=== PATIENT | male | born 1995 | race Caucasian/White ===

== ENCOUNTER 2022-02-18 15:25 | Emergency (ER) | payer OTHER, SELFPAY ==
[2022-02-18 15:59] VITALS: BP 152/91; PULSE 109; RESP 15; TEMP 36.6; O2SAT 98; BMI 24.3
[2022-02-18 16:07] VITALS: BP 141/85; PULSE 115; O2SAT 98
--- NOTE | 2022-02-18 16:23 | DI.RAD.S_ITS ---
PROCEDURE: XR CHEST 1V INDICATIONS: chest pain, hx pericarditis TECHNIQUE: One view of the chest was acquired. COMPARISON: None. FINDINGS: Surgical changes and devices: None. Lungs and pleura: Lungs are clear. No pleural effusions or pneumothorax. Mediastinum: Mediastinal contours appear normal. Heart size is normal. Bones and chest wall: No suspicious bony lesions. Overlying soft tissues appear unremarkable. IMPRESSION: No acute cardiopulmonary findings Approved by: Serg Berry M.D. on 02/18/2022 at 16:10
--- NOTE | 2022-02-18 16:24 | ED_ITS ---
HPI - Abdominal Pain <ARLENE Hoyos - Last Filed: 02/18/22 18:00> General Chief Complaint: Abdominal Pain Stated Complaint: fatigue, upper abd pressure, high heart rate Time Seen by Provider: 02/18/22 16:06 History of Present Illness HPI narrative: This is a 26-year-old male with history of pericarditis 1 year ago after COVID vaccination and takes metoprolol at baseline after this event who presents to the emergency department complaining of not feeling like himself for 1 month with occasional dizziness, states that he has a history of anxiety and does not trust anything for depression or anxiety. States that he feels epigastric discomfort and he felt ?gassy? so he took a Gas-X prior to his arrival today which he states has helped some and now his abdomen feels better. He denies fever, chills, weakness, dysuria, abnormal stool, and denies any other changes. States that he is concerned about his thyroid because he has a family history of thyroid issues and is here to evaluate anything dangerous in his chest that will kill him today he says. Patient denies any upper respiratory symptoms, has not tried any medications other than the Gas-X for his discomfort. He does not drink much coffee, states that he avoids caffeine and other triggers for his high heart rate. States that he does not abuse substances, drink much alcohol, or other. Related Data Allergies Allergy/AdvReac Type Severity Reaction Status Date / Time No Known Drug Allergies Allergy Verified 02/18/22 17:03 Review of Systems <ARLENE Hoyos - Last Filed: 02/18/22 18:00> Review of Systems Narrative: Review of systems is negative for acute abnormalities unless otherwise noted in HPI Patient History <ARLENE Hoyos - Last Filed: 02/18/22 18:00> Social History Smoking Status: Current every day smoker Smoking Status: Current every day smoker tobacco type: vaping alcohol intake frequency: holidays/special occasions only Substance Use Type: does not use Exam <ARLENE Hoyos - Last Filed: 02/18/22 18:00> Narrative Exam Narrative: Reviewed vitals signs and nursing notes. General: cooperative, comfortable, in no acute distress, well groomed HEENT: symmetrical facial expressions, moist mucous membranes Cardiovascular: regular rate and rhythm, no peripheral edema, warm extremities Respiratory: normal effort, able to speak in complete sentences, without wh eezing, stridor, or abnormal breath sounds. No retractions or tachypnea. GI: abdomen soft, nontender to palpation, nondistended, without masses, rebound tenderness or exquisite tenderness with exam. MSK: moves all extremities, neurovascularly intact, no weakness, normal tone Skin: brisk capillary refill, without pallor or erythema Neuro: normal speech and cognition, A&O x3, ambulatory, clear speech Psych: mental status is grossly normal, congruent mood, normal affect, pleasant and cooperative Initial Vital Signs Initial Vital Signs: Vital Signs Temperature 97.8 F 02/18/22 15:59 Pulse Rate 109 H 02/18/22 15:59 Respiratory Rate 15 02/18/22 15:59 Blood Pressure 152/91 H 02/18/22 15:59 Pulse Oximetry 98 02/18/22 15:59 Oxygen Delivery Method 02/18/22 15:59 <Kinjal Lewis MD - Last Filed: 02/19/22 08:12> Initial Vital Signs Initial Vital Signs: Vital Signs Temperature 97.8 F 02/18/22 15:59 Pulse Rate 109 H 02/18/22 15:59 Respiratory Rate 15 02/18/22 15:59 Blood Pressure 152/91 H 02/18/22 15:59 Pulse Oximetry 98 02/18/22 15:59 Oxygen Delivery Method 02/18/22 15:59 Course <ARLENE Hoyos - Last Filed: 02/18/22 18:00> Orders Ordered: Discontinued Medications Hydroxyzine Pamoate (Hydroxyzine Pamoate 25 Mg Capsule) 25 mg PO NOW ONE Stop: 02/18/22 16:24 Last Admin: 02/18/22 17:07 Dose: 25 mg Documented By: AT Pantoprazole Sodium (Pantoprazole Dr 20 Mg Tablet) 20 mg PO NOW ONE Stop: 02/18/22 16:23 Last Admin: 02/18/22 17:07 Dose: 20 mg Documented By: AT Vital Signs Vital signs: Vital Signs - 8 hr 02/18/22 15:59 02/18/22 16:07 02/18/22 16:07 Temperature 97.8 F Pulse Rate 109 H 115 H Respiratory Rate 15 Blood Pressure 152/91 H 141/85 H Pulse Oximetry 98 98 Oxygen Delivery Method Room Air Room Air 02/18/22 16:30 02/18/22 16:30 Temperature Pulse Rate 88 Respiratory Rate 21 Blood Pressure 140/87 Pulse Oximetry 99 Oxygen Delivery Method Room Air <Kinjal Lewis MD - Last Filed: 02/19/22 08:12> Orders Ordered: Discontinued Medications Hydroxyzine Pamoate (Hydroxyzine Pamoate 25 Mg Capsule) 25 mg PO NOW ONE Stop: 02/18/22 16:24 Last Admin: 02/18/22 17:07 Dose: 25 mg Documented By: AT Pantoprazole Sodium (Pantoprazole Dr 20 Mg Tablet) 20 mg PO NOW ONE Stop: 02/18/22 16:23 Last Admin: 02/18/22 17:07 Dose: 20 mg Documented By: AT Vital Signs Vital signs: Vital Signs - 8 hr 02/18/22 15:59 02/18/22 16:07 02/18/22 16:07 Temperature 97.8 F Pulse Rate 109 H 115 H Respiratory Rate 15 Blood Pressure 152/91 H 141/85 H Pulse Oximetry 98 98 Oxygen Delivery Method Room Air Room Air 02/18/22 16:30 02/18/22 16:30 Temperature Pulse Rate 88 Respiratory Rate 21 Blood Pressure 140/87 Pulse Oximetry 99 Oxygen Delivery Method Room Air MDM - Abdominal Pain <ARLENE Hoyos - Last Filed: 02/18/22 18:00> Lab Data Result diagrams: 02/18/22 16:32 02/18/22 16:32 Labs: Lab Results 02/18/22 02/18/22 02/18/22 Range/Units 16:32 16:32 16:32 WBC 9.0 (4.5-11.0) X10^3/uL RBC 5.98 H (4.5-5.9) X10^6/uL Hgb 16.9 (13.5-17.5) g/dL Hct 50.0 (41-53) % MCV 83.6 (80-100) fL MCH 28.2 (26-34) PG MCHC 33.7 (30-36) % RDW 13.5 (11.6-14.8) % Plt Count 243 (150-400) X10^3/uL Neut % (Auto) 71.0 (50-75) % Lymph % (Auto) 22.0 L (25-40) % [place] % (Auto) 6.0 (3-14) % Eos % (Auto) 0.7 L (2-4) % Baso % (Auto) 0.3 (0-2) % Neut # (Auto) 6400 (2758-2214) /uL Lymph # (Auto) 2000 (6634-9517) /uL [place] # (Auto) 500 (0-900) /uL Eos # (Auto) 100 (0-450) /uL Baso # (Auto) 0 (0-100) /uL Sodium 139 (137-145) mmol/L Potassium 4.5 (3.4-5.1) mmol/L Chloride 102 (98-107) mmol/L Carbon Dioxide 29 (22-32) mmol/L BUN 12 (9-20) mg/dL Creatinine 0.94 (0.66-1.25) mg/dL Estimated GFR > 60 (>60) mL/min BUN/Creatinine Ratio 12.8 (6-22) Glucose 97 (70-100) mg/dL Calcium 9.7 (8.4-10.2) mg/dL Total Bilirubin 0.8 (0.2-1.3) mg/dL AST 33 (17-59) IU/L ALT 55 H (<50) IU/L Alkaline Phosphatase 90 (38-126) U/L Total Creatine Kinase 70 (55-170) U/L CK-MB (CK-2) TNP CK-MB (CK-2) Rel Index TNP Troponin I < 0.012 (0.01-0.034) ng/mL Total Protein 8.8 H (6.3-8.2) g/dL Albumin 5.1 H (3.5-5.0) g/dL Globulin 3.7 (1.7-4.1) g/dL Albumin/Globulin Ratio 1.4 (1.0-2.8) Lipase 57 (23-300) U/L TSH 2.49 (0.47-4.68) uIU/mL Urine Color Urine Appearance Urine pH (4.5-8.0) Ur Specific [place] (1.000-1.035) Urine Protein (Negative) Urine Glucose (UA) (Negative) g/dL Urine Ketones (NEGATIVE) Urine Occult Blood (Negative) Urine Nitrate (Negative) Urine Bilirubin (NEGATIVE) Urine Urobilinogen (0.2) E.U./dL Ur Leukocyte Esterase (NEGATIVE) Urine RBC (0-5/HPF) Urine WBC (0-5/HPF) Ur Squamous Epith Cells (0-5/HPF) Urine Bacteria (None) Ur Culture Indicated? SARS-CoV-2 (PCR) (Negative) Influenza A (RT-PCR) (NEGATIVE) Influenza B (RT-PCR) (NEGATIVE) RSV (PCR) (Negative) 02/18/22 02/18/22 Range/Units 16:34 16:41 WBC (4.5-11.0) X10^3/uL RBC (4.5-5.9) X10^6/uL Hgb (13.5-17.5) g/dL Hct (41-53) % MCV (80-100) fL MCH (26-34) PG MCHC (30-36) % RDW (11.6-14.8) % Plt Count (150-400) X10^3/uL Neut % (Auto) (50-75) % Lymph % (Auto) (25-40) % [place] % (Auto) (3-14) % Eos % (Auto) (2-4) % Baso % (Auto) (0-2) % Neut # (Auto) (7447-7230) /uL Lymph # (Auto) (1321-3113) /uL [place] # (Auto) (0-900) /uL Eos # (Auto) (0-450) /uL Baso # (Auto) (0-100) /uL Sodium (137-145) mmol/L Potassium (3.4-5.1) mmol/L Chloride (98-107) mmol/L Carbon Dioxide (22-32) mmol/L BUN (9-20) mg/dL Creatinine (0.66-1.25) mg/dL Estimated GFR (>60) mL/min BUN/Creatinine Ratio (6-22) Glucose (70-100) mg/dL Calcium (8.4-10.2) mg/dL Total Bilirubin (0.2-1.3) mg/dL AST (17-59) IU/L ALT (<50) IU/L Alkaline Phosphatase (38-126) U/L Total Creatine Kinase (55-170) U/L CK-MB (CK-2) CK-MB (CK-2) Rel Index Troponin I (0.01-0.034) ng/mL Total Protein (6.3-8.2) g/dL Albumin (3.5-5.0) g/dL Globulin (1.7-4.1) g/dL Albumin/Globulin Ratio (1.0-2.8) Lipase (23-300) U/L TSH (0.47-4.68) uIU/mL Urine Color Yellow Urine Appearance Clear Urine pH 6.5 (4.5-8.0) Ur Specific [place] <=1.005 (1.000-1.035) Urine Protein Negative (Negative) Urine Glucose (UA) Negative (Negative) g/dL Urine Ketones Negative (NEGATIVE) Urine Occult Blood Negative (Negative) Urine Nitrate Negative (Negative) Urine Bilirubin Negative (NEGATIVE) Urine Urobilinogen 0.2 (0.2) E.U./dL Ur Leukocyte Esterase Negative (NEGATIVE) Urine RBC None seen (0-5/HPF) Urine WBC 0-1/hpf (0-5/HPF) Ur Squamous Epith Cells 0-1 /hpf (0-5/HPF) Urine Bacteria None seen (None) Ur Culture Indicated? Cult not indicated SARS-CoV-2 (PCR) Negative (Negative) Influenza A (RT-PCR) Flu a negative (NEGATIVE) Influenza B (RT-PCR) Flu b negative (NEGATIVE) RSV (PCR) Negative (Negative) Imaging Data Chest x-ray: Radiologist's Impression: PROCEDURE:? XR CHEST 1V ? INDICATIONS:? chest pain, hx pericarditis ? TECHNIQUE:? One view of the chest was acquired.? ? COMPARISON:? None. ? FINDINGS:? ? Surgical changes and devices:? None.? ? Lungs and pleura:? Lungs are clear.? No pleural effusions or pneumothorax.? ? Mediastinum:? Mediastinal contours appear normal.? Heart size is normal.? ? Bones and chest wall:? No suspicious bony lesions.? Overlying soft tissues appear unremarkable.? ? IMPRESSION:? No acute cardiopulmonary findings ? Approved by: Serg Berry M.D. on 02/18/2022 at 16:10? ECG Data Interpretation: EKG independently reviewed by myself [id number] reveals normal sinus rhythm at 89 bpm with regular axis and intervals. No STEMI, ST segment changes, arrhythmia, or acute ischemic changes. MDM Narrative Medical decision making narrative: This is an otherwise healthy 26-year-old male who presents to the emergency department with generalized lightheadedness and feeling ?off? for a month. Came to the emergency department with concern about his thyroid, states he has a family history of thyroid problems and thinks that maybe this is why, he also endorses history of anxiety that he does not take any medication for or see a therapist for. He has right-sided anterior chest pain which he states just started, epigastric pain, states that he feels anxious and mildly nauseous, denies any upper respiratory illness symptoms including cough, fever, congestion. Denies any vomiting, diarrhea, blood in his urine or stool, his workup today is reassuring, chest x-ray is negative for acute cardiopulmonary findings, lab work overall is unremarkable, no leukocytosis or anemia, suspect mild dehydration due to hemoconcentration, no electrolyte abnormalities, abnormalities to his liver enzymes, troponin or total CK, lipase is 57, UA was negative for infection, COVID, influenza a and B and RSV are all negative via PCR. Patient does not have any risk factors for ACS, his TSH is still pending, patient has follow-up scheduled with his PCP regarding his TSH. I treated him in the emergency department with Protonix and hydroxyzine for his epigastric pain and anxiety/nausea. States that he feels mildly better, patient takes metoprolol at baseline for tachycardia which he states is secondary to pericarditis that he had last year after a COVID vaccine. Multiple causes of chest pain considered including OH, PE, pneumothorax, pneumonia, aortic dissection, and pleurisy. Patient reports no radiation, no diaphoresis, no provocation with exertion, and no vomiting Patient has scheduled follow-up in 2 days with his PCP, understands to follow-up accordingly, discuss his anxiety, his history, this workup today and to return for any new or worsening symptoms. Encouraged him to stay hydrated. Patient is appropriate and amenable to discharge home. Vital signs are stable on repeat examination is unremarkable. Patient has been informed of results. Patient has been given strict return to ER precautions for any new or worsening symptoms. Patient understands to follow up closely with outpatient providers as instructed. Patient understands plan and agrees to discharge home. All questions and concerns answered at this time. <Kinjal Lewis MD - Last Filed: 02/19/22 08:12> Lab Data Labs: Lab Results 02/18/22 02/18/22 02/18/22 Range/Units 16:32 16:32 16:32 WBC 9.0 (4.5-11.0) X10^3/uL RBC 5.98 H (4.5-5.9) X10^6/uL Hgb 16.9 (13.5-17.5) g/dL Hct 50.0 (41-53) % MCV 83.6 (80-100) fL MCH 28.2 (26-34) PG MCHC 33.7 (30-36) % RDW 13.5 (11.6-14.8) % Plt Count 243 (150-400) X10^3/uL Neut % (Auto) 71.0 (50-75) % Lymph % (Auto) 22.0 L (25-40) % [place] % (Auto) 6.0 (3-14) % Eos % (Auto) 0.7 L (2-4) % Baso % (Auto) 0.3 (0-2) % Neut # (Auto) 6400 (1649-8833) /uL Lymph # (Auto) 2000 (2098-9395) /uL [place] # (Auto) 500 (0-900) /uL Eos # (Auto) 100 (0-450) /uL Baso # (Auto) 0 (0-100) /uL Sodium 139 (137-145) mmol/L Potassium 4.5 (3.4-5.1) mmol/L Chloride 102 (98-107) mmol/L Carbon Dioxide 29 (22-32) mmol/L BUN 12 (9-20) mg/dL Creatinine 0.94 (0.66-1.25) mg/dL Estimated GFR > 60 (>60) mL/min BUN/Creatinine Ratio 12.8 (6-22) Glucose 97 (70-100) mg/dL Calcium 9.7 (8.4-10.2) mg/dL Total Bilirubin 0.8 (0.2-1.3) mg/dL AST 33 (17-59) IU/L ALT 55 H (<50) IU/L Alkaline Phosphatase 90 (38-126) U/L Total Creatine Kinase 70 (55-170) U/L CK-MB (CK-2) TNP CK-MB (CK-2) Rel Index TNP Troponin I < 0.012 (0.01-0.034) ng/mL Total Protein 8.8 H (6.3-8.2) g/dL Albumin 5.1 H (3.5-5.0) g/dL Globulin 3.7 (1.7-4.1) g/dL Albumin/Globulin Ratio 1.4 (1.0-2.8) Lipase 57 (23-300) U/L TSH 2.49 (0.47-4.68) uIU/mL Urine Color Urine Appearance Urine pH (4.5-8.0) Ur Specific [place] (1.000-1.035) Urine Protein (Negative) Urine Glucose (UA) (Negative) g/dL Urine Ketones (NEGATIVE) Urine Occult Blood (Negative) Urine Nitrate (Negative) Urine Bilirubin (NEGATIVE) Urine Urobilinogen (0.2) E.U./dL Ur Leukocyte Esterase (NEGATIVE) Urine RBC (0-5/HPF) Urine WBC (0-5/HPF) Ur Squamous Epith Cells (0-5/HPF) Urine Bacteria (None) Ur Culture Indicated? SARS-CoV-2 (PCR) (Negative) Influenza A (RT-PCR) (NEGATIVE) Influenza B (RT-PCR) (NEGATIVE) RSV (PCR) (Negative) 02/18/22 02/18/22 Range/Units 16:34 16:41 WBC (4.5-11.0) X10^3/uL RBC (4.5-5.9) X10^6/uL Hgb (13.5-17.5) g/dL Hct (41-53) % MCV (80-100) fL MCH (26-34) PG MCHC (30-36) % RDW (11.6-14.8) % Plt Count (150-400) X10^3/uL Neut % (Auto) (50-75) % Lymph % (Auto) (25-40) % [place] % (Auto) (3-14) % Eos % (Auto) (2-4) % Baso % (Auto) (0-2) % Neut # (Auto) (2367-2475) /uL Lymph # (Auto) (3572-7163) /uL [place] # (Auto) (0-900) /uL Eos # (Auto) (0-450) /uL Baso # (Auto) (0-100) /uL Sodium (137-145) mmol/L Potassium (3.4-5.1) mmol/L Chloride (98-107) mmol/L Carbon Dioxide (22-32) mmol/L BUN (9-20) mg/dL Creatinine (0.66-1.25) mg/dL Estimated GFR (>60) mL/min BUN/Creatinine Ratio (6-22) Glucose (70-100) mg/dL Calcium (8.4-10.2) mg/dL Total Bilirubin (0.2-1.3) mg/dL AST (17-59) IU/L ALT (<50) IU/L Alkaline Phosphatase (38-126) U/L Total Creatine Kinase (55-170) U/L CK-MB (CK-2) CK-MB (CK-2) Rel Index Troponin I (0.01-0.034) ng/mL Total Protein (6.3-8.2) g/dL Albumin (3.5-5.0) g/dL Globulin (1.7-4.1) g/dL Albumin/Globulin Ratio (1.0-2.8) Lipase (23-300) U/L TSH (0.47-4.68) uIU/mL Urine Color Yellow Urine Appearance Clear Urine pH 6.5 (4.5-8.0) Ur Specific [place] <=1.005 (1.000-1.035) Urine Protein Negative (Negative) Urine Glucose (UA) Negative (Negative) g/dL Urine Ketones Negative (NEGATIVE) Urine Occult Blood Negative (Negative) Urine Nitrate Negative (Negative) Urine Bilirubin Negative (NEGATIVE) Urine Urobilinogen 0.2 (0.2) E.U./dL Ur Leukocyte Esterase Negative (NEGATIVE) Urine RBC None seen (0-5/HPF) Urine WBC 0-1/hpf (0-5/HPF) Ur Squamous Epith Cells 0-1 /hpf (0-5/HPF) Urine Bacteria None seen (None) Ur Culture Indicated? Cult not indicated SARS-CoV-2 (PCR) Negative (Negative) Influenza A (RT-PCR) Flu a negative (NEGATIVE) Influenza B (RT-PCR) Flu b negative (NEGATIVE) RSV (PCR) Negative (Negative) Discharge Plan Departure Patient Disposition: Home Clinical Impression: Dizziness, Acute epigastric pain Instructions: Anxiety Disorders, DI for Epigastric Pain, DI for Dizziness- Nonvertigo Activity Restrictions/Additional Instructions: *You have been diagnosed with epigastric pain which might be related to increased acid production, ulcer, gastritis, you may have generalized epigastric discomfort from foods or from anxiety. Your cardiac workup today is very reassuring, your EKG was normal, your heart sounds are normal, your vital signs are within normal ranges and your lab work does not show any increased white blood cell count, electrolyte abnormalities, problems with your kidneys, liver, gallbladder, or pancreas, your urine was negative for infection, your COVID, influenza and RSV test is negative. You may have an other reason for your generalized lightheadedness, your chest x-ray does not show an enlarged heart, pneumonia, or other abnormality in your chest. Please stay hydrated, follow-up with your primary care provider on Monday as scheduled, discuss these symptoms and please discuss your mental health, anxiety and/or depression if this affects you. [place] of your epigastric pain and lightheadedness. I am not sure the reason for your symptoms today but d we did not find anything that is dangerous. *What to do: *Please continue to take your regular medications as directed. [ ] New medication prescriptions sent to your pharmacy: [ ] [ ] New medication written as a paper prescription [x ] No new medications given *Please follow up with your primary care provider in 2-3 days, call for an appointment. Let them know you were seen in the Emergency Department and that we asked that you be seen for follow-up. We will electronically transmit a record of today's note if your PCP is in our system *If you do not have a primary care provider please contact [phone] to establish care with one of the [facility] primary care providers. *Return to Emergency Department if you should have any new, worsening, or concerning symptoms, such as [fever greater than 101F, chills, worsening pain, persistent vomiting or other bothersome symptoms]. Referrals: ProviderDrew [Primary Care Provider] - Visit Report Forms: Patient Portal/API <Kinjal Lewis MD - Last Filed: 02/19/22 08:12> Cosign ED Attending Cosignature Attestation: I was immediately available in the department for consultation throughout this patient's visit. I agree with documentation as above. Kinjal Lewis MD
[2022-02-18 16:30] VITALS: BP 140/87; PULSE 88; RESP 21; O2SAT 99
[2022-02-18 16:46] LABS: Add Manual Diff / Slide Review NO; Basophils Absolute Auto 0 /uL (0-100); Basophils Percent Auto 0.3 % (0-2); Eosinophils Absolute Auto 100 /uL (0-450); Eosinophils Percent Auto 0.7 % (2-4); Hemoglobin 16.9 g/dL (13.5-17.5); Lymphocytes Absolute Auto 2000 /uL (1100-4500); Mean Corpuscular HGB Conc 33.7 % (30-36); Mean Corpuscular Hemoglobin 28.2 PG (26-34); Mean Corpuscular Volume 83.6 fL (80-100); Monocytes Absolute Auto 500 /uL (0-900); Neutrophils Absolute Auto 6400 /uL (1500-7000); Platelet Count 243 X10^3/uL (150-400); Red Blood Cell Count 5.98 X10^6/uL (4.5-5.9); Red Cell Distribution Width 13.5 % (11.6-14.8)
[2022-02-18 17:00] VITALS: BP 129/80; PULSE 90; RESP 19; O2SAT 96
[2022-02-18 17:00] LABS: Alanine Aminotransferase 55 IU/L (<50); Albumin 5.1 g/dL (3.5-5.0); Albumin Globulin Ratio 1.4 (1.0-2.8); Alkaline Phosphatase 90 U/L (38-126); Aspartate Aminotransferase 33 IU/L (17-59); BUN Creatinine Ratio 12.8 (6-22); Bilirubin Total 0.8 mg/dL (0.2-1.3); Blood Urea Nitrogen 12 mg/dL (9-20); Calcium 9.7 mg/dL (8.4-10.2); Carbon Dioxide 29 mmol/L (22-32); Chloride 102 mmol/L (98-107); Creatine Kinase 70 U/L (55-170); Estimated Glomerular Filt Rate > 60 mL/min (>60); Globulin 3.7 g/dL (1.7-4.1); Glucose 97 mg/dL (70-100); HEMOLYSIS 34 (0-50); Lipase 57 U/L (23-300); Potassium 4.5 mmol/L (3.4-5.1); Sodium 139 mmol/L (137-145); Total Protein 8.8 g/dL (6.3-8.2)
[2022-02-18 17:01] LABS: Appearance Urine UA CLEAR; Bilirubin Urine UA NEGATIVE (NEGATIVE); Color Urine UA YELLOW; Glucose Urine UA NEGATIVE (Negative); Ketones Urine UA NEGATIVE (NEGATIVE); Leukocyte Esterase Urine UA NEGATIVE (NEGATIVE); Nitrite Urine UA NEGATIVE (Negative); Occult Blood Urine UA NEGATIVE (Negative); Protein Urine UA NEGATIVE (Negative); Specific Gravity Urine UA <=1.005 (1.000-1.035); Urobilinogen Urine UA 0.2 E.U./dL (0.2); pH Urine UA 6.5 (4.5-8.0)
[2022-02-18 17:03] LABS: Bacteria Urine None Seen; Culture Indicated Urine Cult Not Indicated; RBC Urine None Seen (0-5/HPF); Squamous Epithelial Cell Urine 0-1 /HPF (0-5/HPF); WBC Urine 0-1/HPF (0-5/HPF)
[2022-02-18] MEDS: PANTOPRAZOLE DR 20 MG TABLET PO (17:07)
[2022-02-18] MEDS: hydrOXYzine pamoate 25 MG CAPSULE PO (17:07)
[2022-02-18 17:11] LABS: Troponin I < 0.012 ng/mL (0.01-0.034)
[2022-02-18 17:28] LABS: Influenza A - CEPHEID Flu A NEGATIVE (NEGATIVE); Influenza B - CEPHEID Flu B NEGATIVE (NEGATIVE); Respiratory Syncytial Virus Negative (Negative)
[2022-02-18 17:30] VITALS: BP 122/79; PULSE 82; RESP 17; O2SAT 96
[2022-02-18 17:32] LABS: COVID-19 CEPHEID 4-PLEX PCR Negative (Negative)
[2022-02-18 17:52] VITALS: BP 125/80; PULSE 79; RESP 22; O2SAT 97
[2022-02-18 18:41] LABS: Thyroid Stimulating Hormone 2.49 uIU/mL (0.47-4.68)
== END 2022-02-18 18:07 | disposition home or self-care (01) ==
PROVIDERS: Emergency Provider Nurse Practitioner Critical Care Medicine
DX: R42 Dizziness and giddiness (principal); R07.9 Chest pain, unspecified; R10.13 Epigastric pain; Z20.822 Contact with and (suspected) exposure to COVID-19
CPT/HCPCS: 0241U; 36415; 71045; 80053; 81001; 82550; 83690; 84443; 84484; 85025; 93005; 93010; 99284